=== PATIENT | female | born 1990 | race African-American/Black ===

== ENCOUNTER 2021-01-27 11:06 | Emergency (ER) | payer OTHER ==
[2021-01-27 11:56] LABS: #Eosinphils 0.1 10x3/uL (0.0-0.5); #Monocytes 0.4 10x3/uL (0.0-1.1); #Neutrophils 3.9 10x3/uL (1.5-8.4); %Basophils 0.2 % (0.0-2.0); %Eosinophils 0.9 % (0.0-6.0); %Lymphocytes 21.5 % (18.0-47.0); %Monocytes 7.1 % (0.0-10.0); %Neutrophils 69.8 % (40.0-75.0); Hemoglobin 10.6 g/dL (12.0-15.5); Mean Corpuscular HGB CONC 33.1 g/dL (32.0-36.0); Mean Corpuscular Volume 90.7 fl (81.6-98.3); Mean Platelet Volume 9.1 fl (7.4-10.4); Platelet Count 277 10x3/uL (150-450); RBC Distribution Width 13.7 % (11.5-14.5); Red Blood Cell (RBC) Count 3.53 10x6/uL (3.90-5.03); White Blood Cell (WBC) Count 5.6 10x3/uL (3.5-10.5)
[2021-01-27 12:05] LABS: ALT (SGPT) 12 U/L (8-55); AST (SGOT) 14 U/L (5-34); Albumin 3.3 g/dL (3.5-5.0); Alkaline Phosphatase 53 U/L (40-110); Anion Gap 15 mmol/L (10-20); BUN (Urea Nitrogen) 7 mg/dL (7.0-18.7); Bilirubin, Total 0.2 mg/dL (0.2-1.2); Calc. Creatinine Clearance 0 mL/min (70-130); Calcium 8.9 mg/dL (7.8-10.44); Carbon Dioxide 20 mmol/L (22-29); Chloride 107 mmol/L (98-107); Globulin 2.8 g/dL (2.4-3.5); Glucose 82 mg/dL (70-105); Potassium 3.8 mmol/L (3.5-5.1); Protein, Total 6.1 g/dL (6.0-8.3); Sodium 138 mmol/L (136-145)
== END 2021-01-27 14:30 | disposition home or self-care (01) ==
LOC: CSHERS 11:06
DX: O99.611 Diseases of the digestive system complicating pregnancy, first trimester (principal); K59.00 Constipation, unspecified; Z3A.19 19 weeks gestation of pregnancy
CPT/HCPCS: 36415; 76805; 80053; 84702; 85025; 86900; 86901

== ENCOUNTER 2021-05-28 22:08 | Day surgery (SDC) | payer OTHER ==
[2021-05-28 22:52] VITALS: BMI 36.1
[2021-05-29] MEDS ORDERED: hydrALAZINE 20 MG/ML VIAL SLOW IVP PRN (00:23)
== END 2021-05-29 01:40 | disposition home or self-care (01) ==
LOC: CSHLD/OP 22:08
PROVIDERS: ATTEND Obstetrics & Gynecology
DX: O47.03 False labor before 37 completed weeks of gestation, third trimester (principal); O21.0 Mild hyperemesis gravidarum; O99.013 Anemia complicating pregnancy, third trimester; Z3A.36 36 weeks gestation of pregnancy
CPT/HCPCS: 99283

== ENCOUNTER 2021-06-05 18:30 | Day surgery (SDC) | payer BC, OTHER ==
[2021-06-05 19:49] VITALS: BMI 35.6
[2021-06-05 19:49] LABS: Fetal Membranes Rupture No Membranes Rupture (No Rupture)
[2021-06-05] MEDS ORDERED: hydrALAZINE 20 MG/ML VIAL SLOW IVP PRN (19:53)
== END 2021-06-05 21:45 | disposition home or self-care (01) ==
LOC: CSHLD/OP 18:30
PROVIDERS: ATTEND Obstetrics & Gynecology
DX: O47.1 False labor at or after 37 completed weeks of gestation (principal); O23.593 Infection of other part of genital tract in pregnancy, third trimester; B96.89 Other specified bacterial agents as the cause of diseases classified elsewhere; Z3A.37 37 weeks gestation of pregnancy
CPT/HCPCS: 84112; 87480; 87510; 87660; 99285

== ENCOUNTER 2021-06-09 08:36 | Inpatient (IN) | payer OTHER ==
[2021-06-09] MEDS ORDERED: HYDROcodone/Acetaminophen 5/325 mg Tablet PO PRN ×3 (08:46→15:47)
[2021-06-09] MEDS ORDERED: Promethazine HCl 25 MG/ML VIAL IM PRN (08:46)
[2021-06-09] MEDS ORDERED: hydrALAZINE 20 MG/ML VIAL SLOW IVP PRN ×2 (08:46→15:47)
[2021-06-09] MEDS ORDERED: Ondansetron PF 4 MG/2 ML Vial IVP PRN ×2 (08:46→15:47)
[2021-06-09] MEDS ORDERED: Ibuprofen 800 MG TAB PO PRN (08:46)
[2021-06-09] MEDS ORDERED: Acetaminophen 500 MG TAB PO PRN (08:46)
[2021-06-09] MEDS ORDERED: Lidocaine 1% (PF) 30 ML VIAL SC PRN (08:46)
[2021-06-09] MEDS ORDERED: Misoprostol 200 MCG TAB PR PRN (08:46)
[2021-06-09] MEDS ORDERED: Butorphanol Tartrate 1 MG/ML VIAL SLOW IVP PRN (08:46)
[2021-06-09] MEDS ORDERED: Docusate 100 MG CAP PO PRN (08:46)
[2021-06-09] MEDS ORDERED: Diphenoxylate HCl/Atropine Tablet PO PRN ×2 (08:46)
[2021-06-09] MEDS ORDERED: NS w/ Oxytocin 30 units 500 ML IV SCH ×3 (09:00→16:00)
[2021-06-09] MEDS ORDERED: NS w/ Oxytocin 30 units 500 ML IVPB SCH (09:00)
[2021-06-09] MEDS ORDERED: Lactated Ringer's 1,000 ML IV SCH (09:00)
[2021-06-09 09:37] VITALS: BMI 36.1
[2021-06-09 10:02] LABS: Hemoglobin 9.1 g/dL (12.0-15.5); Mean Corpuscular Volume 90.4 fl (81.6-98.3); Red Blood Cell (RBC) Count 3.14 10x6/uL (3.90-5.03); White Blood Cell (WBC) Count 4.6 10x3/uL (3.5-10.5)
[2021-06-09 10:03] LABS: Mean Platelet Volume 9.7 fl (7.4-10.4); Platelet Count 283 10x3/uL (150-450); RBC Distribution Width 14.3 % (11.5-14.5)
[2021-06-09 10:32] LABS: Syphilis Antibody Nonreactive (Nonreactive); Syphilis Antibody Index 0.04 S/CO (<1.00 Non-Reactive)
[2021-06-09 10:33] LABS: HIV (1/2) Antibody/Antigen Non-Reactive (NonReactive); HIV 1/2 INDEX 0.07 S/CO (<1.00); Hep B Surf Ag Non-Reactive S/CO (NonReactive)
[2021-06-09 10:36] LABS: HBSAg Index 0.14 S/CO (0-0.99)
[2021-06-09 11:16] LABS: SARS-CoV-2 NAA Rapid Test Not Detected (NotDetected)
[2021-06-09] MEDS ORDERED: Fentanyl 2 mcg/Bup 0.1% Cadd 100 ML ONE (14:37)
[2021-06-09] MEDS ORDERED: Preparation H Ointment 28 GM TUBE PR PRN (15:47)
[2021-06-09] MEDS ORDERED: Benzocaine-Menthol 82.5 ML CAN TOP PRN (15:47)
[2021-06-09] MEDS ORDERED: diphenhydrAMINE 25 MG CAP PO PRN (15:47)
[2021-06-09] MEDS ORDERED: Misoprostol 200 MCG TAB VAG PRN (15:47)
[2021-06-09] MEDS ORDERED: Lanolin Ointment 7 GM TUBE TOP PRN (15:47)
[2021-06-09] MEDS ORDERED: Milk Of Magnesia 30 ML UDCUP PO PRN (15:47)
[2021-06-09] MEDS ORDERED: Zolpidem Tartrate 5 MG TAB PO PRN (15:47)
[2021-06-09] MEDS ORDERED: Bisacodyl 10 MG SUPP PR PRN (15:47)
[2021-06-09] MEDS ORDERED: Boostrix 0.5 ML (Tdap) VIAL IM ONE (15:47)
[2021-06-09] MEDS: Ibuprofen 800 MG TAB PO SCH (22:29)
[2021-06-09] MEDS: Docusate Calcium (SURFAK) 240 MG CAP PO SCH (22:30)
[2021-06-10] MEDS: Ferrous Sulfate 325 MG TAB PO SCH ×2 (04:06→09:01)
[2021-06-10] MEDS: Ibuprofen 800 MG TAB PO SCH ×2 (06:40→13:56)
[2021-06-10] MEDS ORDERED: Prenatal Vitamin 1 TAB PO SCH (09:00)
[2021-06-10] MEDS: Docusate Calcium (SURFAK) 240 MG CAP PO SCH (09:01)
[2021-06-10] MEDS: HYDROcodone/Acetaminophen 5/325 mg Tablet PO PRN ×2 (09:02→13:57)
[2021-06-10 11:52] VITALS: BP 111/69; TEMP 97.6
== END 2021-06-10 18:00 | disposition home or self-care (01) | DRG 807 ==
LOC: CSHLD 08:36 → CSHPED 18:35
PROVIDERS: ADMIT Obstetrics & Gynecology; ATTEND Obstetrics & Gynecology
PROC: 10907ZC Drainage of Amniotic Fluid, Therapeutic from Products of Conception, Via Natural or Artificial Opening (ICD-10-PCS; principal; 2021-06-10)
PROC: 10E0XZZ Delivery of Products of Conception, External Approach (ICD-10-PCS; 2021-06-10)
DX: O99.02 Anemia complicating childbirth (principal); Z37.0 Single live birth; D64.9 Anemia, unspecified; Z3A.38 38 weeks gestation of pregnancy
CPT/HCPCS: 36415; 85027; 86780; 86850; 86900; 86901; 87340; 87389; J2590; J7120; U0002